=== PATIENT | male | born 1985 | race Two or more races ===

== ENCOUNTER 2020-10-15 06:47 | Emergency (ER) | payer MEDICAID ==
[~2020-10-15] VITALS: Ht 180.3 cm; Wt 97.5 kg
[2020-10-15 07:12] VITALS: BP 142/80
== END 2020-10-15 07:58 | disposition home or self-care (01) ==
LOC: ER 06:47
DX: S46.911A Strain of unspecified muscle, fascia and tendon at shoulder and upper arm level, right arm, initial encounter (principal); F17.210 Nicotine dependence, cigarettes, uncomplicated; X50.1XXA Overexertion from prolonged static or awkward postures, initial encounter; Y93.89 Activity, other specified; Y92.89 Other specified places as the place of occurrence of the external cause; Y99.8 Other external cause status
CPT/HCPCS: 73030